=== PATIENT | female | born 1990 | race Caucasian/White ===

== ENCOUNTER 2017-08-12 09:27 | Emergency (ER) | payer OTHER ==
[2017-08-12 10:05] LABS: APPEARANCE,URINE Clear; BILIRUBIN,URINE NEGATIVE (NEGATIVE); COLOR,URINE Yellow; GLUCOSE, URINE (UA) NEGATIVE (NEGATIVE); KETONES,URINE NEGATIVE (NEGATIVE); LEUKOCYTE ESTERASE ,URINE NEGATIVE (NEGATIVE); NITRATE,URINE NEGATIVE (NEGATIVE); OCCULT BLOOD,URINE 1+ (NEG-TRACE); UROBILINOGEN,URINE 0.2 (0.2-1.0 EU)
[2017-08-12 10:23] VITALS: BP 119/75; PULSE 82; RESP 20; TEMP 97.7; O2SAT 100
[2017-08-12 10:39] LABS: RBC,URINE 0-1 (0-3AV/HPF); WBC,URINE 0-1 (0-5AV/HPF)
[2017-08-12 10:58] LABS: CALCIUM 8.2 mg/dl (8.5-10.1); POTASSIUM 3.8 mMol/L (3.5-5.1)
[2017-08-12 11:30] LABS: HEMATOCRIT 37 % (35-47)
[2017-08-16 05:37] LABS: MEAN CORPUSCULAR VOLUME 88 fL (81-99)
[2017-08-16 05:38] LABS: BASOPHILS % (AUTO) 1 % (0-3); EOSINOPHILS % (AUTO) 2 % (0-9); MEAN CORPUSCULAR HGB CONC 30.4 gm/dl (32.0-36.0); MONOCYTES % (AUTO) 5.7 % (0-12); NEUTROPHILS % (AUTO) 73.2 % (37-80)
== END 2017-08-12 12:32 | disposition home or self-care (01) ==
LOC: ED 09:27
DX: N20.0 Calculus of kidney (principal)
CPT/HCPCS: 80048; 81001; 85025; 99282; 99283